=== PATIENT | female | born 1990 | race Caucasian/White ===

== ENCOUNTER 2019-08-26 21:24 | Inpatient (IN) | payer BC ==
[~2019-08-26] VITALS: Ht 177.8 cm; Wt 85.9 kg
[2019-08-26] VITALS (8 sets, daily range): BP systolic 103–132; BP diastolic 46–66; PULSE 71–101; TEMP 97.7
[2019-08-26] MEDS ORDERED: PRENATAL TABLET PO (21:49)
--- NOTE | 2019-08-26 22:00 | NUR ---
CARE ASSUMED . IV START FOR EPIDURAL. CONSENTS OBTAINED. PLAN OF CARE REVIEWED
--- NOTE | 2019-08-26 22:14 | NUR ---
UPRIGHT FOR EPIDURAL PLACEMENT.
[2019-08-26 22:17] LABS: BASO # 0.1 (0.0-0.2); BASO % 0.5 % (0.0-2.0); EOS # 0.1 (0.0-0.7); EOS % 0.3 % (0-4.0); GRAN # 12.2 (1.4-6.5); GRAN % 79.2 % (42.2-75.2); HEMOGLOBIN 11.3 g/dl (12.5-16.0); LYMPH # 2.2 (1.2-3.4); LYMPH % 14.5 % (20.0-51.0); MEAN CELL VOLUME 94 fl (80.0-100.0); MEAN CORPUSCULAR HEMOGLOBIN 32 pg (27.0-31.0); MEAN CORPUSCULAR HGB CONC 34 g/dl (33.0-37.0); MONO # 0.7 (0.1-0.6); MONO % 4.7 % (1.7-9.3); PLATELET COUNT 184 K/mm3 (130-400); RED BLOOD COUNT 3.58 M/mm3 (4.10-5.30); REDCELL DISTRIBUTION WIDTH-CV 13.2 % (11.5-14.5)
[2019-08-26 22:21] LABS: HEMATOCRIT 33.7 % (37.0-47.0)
[2019-08-27] VITALS (19 sets, daily range): BP systolic 97–121; BP diastolic 54–74; PULSE 62–98; TEMP 97.6–99.4
--- NOTE | 2019-08-27 03:00 | NUR ---
JENNIE CARE FOR DELIVERY, JOE REMOVED. 0310 DR PEREIRA HERE FOR EDELIVERY - BED APART PUSHING WELL 0322 MALE SEE DEL RECORD
--- NOTE | 2019-08-27 03:45 | NUR ---
0322 TO MOTHERS ABDOMEN - SPONT CRY
--- NOTE | 2019-08-27 06:30 | NUR ---
Bedside shift report from Rodri SIDHU. Patient unable to lift and hold right leg off of bed. Fundus firm, lochia WNL. Encouraged to rest. Call light within reach.
--- NOTE | 2019-08-27 07:00 | NUR ---
Patient still unable to lift and hold right leg but states it is less numb. Fundus firm but bladder distended. Straight catheter used to drain bladder - 800ml clear yellow urine noted. Pericare performed. Underwear and peripad in place. Gown changed. Epidural catheter dc'd. Patient transferred to wheelchair with RN assist x2. Patient to Room 214 via wheelchair. Oriented to room and plan of care. Call light within reach.
[2019-08-28 08:15] VITALS: BP 114/99; PULSE 68; TEMP 98.3
[2019-08-28] MEDS ORDERED: IBU600 MG PO (09:38)
[2019-08-28 15:13] VITALS: BP 127/65; PULSE 65; TEMP 97.4
[2019-08-28 21:10] VITALS: BP 105/58; PULSE 73; TEMP 97.6
[2019-08-29 07:20] VITALS: BP 114/63; PULSE 67; TEMP 97.9
== END 2019-08-29 11:00 | disposition home or self-care (01) | DRG 807 ==
LOC: LDRO 21:24 → LDR 22:07 → OB 22:07
PROVIDERS: Obstetrics & Gynecology; ADMIT Obstetrics & Gynecology
PROC: 10E0XZZ Delivery of Products of Conception, External Approach (ICD-10-PCS; principal; 2019-08-26)
PROC: 10907ZC Drainage of Amniotic Fluid, Therapeutic from Products of Conception, Via Natural or Artificial Opening (ICD-10-PCS; 2019-08-26)
PROC: 0HQ9XZZ Repair Perineum Skin, External Approach (ICD-10-PCS; 2019-08-26)
DX: O99.824 Streptococcus B carrier state complicating childbirth (principal); Z37.0 Single live birth; Z3A.39 39 weeks gestation of pregnancy; O77.0 Labor and delivery complicated by meconium in amniotic fluid; O70.0 First degree perineal laceration during delivery; O99.52 Diseases of the respiratory system complicating childbirth; J45.909 Unspecified asthma, uncomplicated
CPT/HCPCS: J2540; J2590; J2791; J2795; J7120